=== PATIENT | male | born 1975 | race Caucasian/White ===

== ENCOUNTER 2016-11-22 19:56 | Emergency (ER) | payer MEDICAID ==
[~2016-11-22] VITALS: Ht 160 cm; Wt 52.6 kg
[2016-11-22 20:06] VITALS: BP 144/67; PULSE 75; RESP 18; TEMP 97.9; O2SAT 99
--- NOTE | 2016-11-22 20:11 | NUR ---
PT TRIAGED. VITAL SIGNS ARE STABLE. PT AMBULATED TO WAITING ROOM W/ A STEADY GAIT
--- NOTE | 2016-11-22 20:45 | NUR ---
Brenda Wilson, PROMOTIONAL MODEL in triage to examine pt and discuss plan of care.
--- NOTE | 2016-11-22 21:30 | NUR ---
Pt ambulatory to c1. Report given to ABRAN Brantley.
--- NOTE | 2016-11-22 21:40 | NUR ---
Pt states that he has been having 10/10 headache with photophobia. Will continue to monitor. AAOx4. No distress noted.
[2016-11-22] MEDS ORDERED: KETOROLAC TROMETHAMINE 60 MG/2 ML VIAL IM ONE (22:15)
[2016-11-22 23:19] VITALS: BP 138/67; PULSE 72; RESP 18; TEMP 97.9; O2SAT 99
--- NOTE | 2016-11-22 23:19 | NUR ---
Patient given written and verbal discharge instructions and verbalizes understanding. ER MD discussed with patient the results and treatment provided. Patient in stable condition. ID arm band removed. Rx of Moltrin given. Patient educated on pain management and to follow up with PMD. Pain Scale 2/10. Opportunity for questions provided and answered.
== END 2016-11-22 23:19 | disposition home or self-care (01) ==
LOC: SED 19:56
DX: G43.909 Migraine, unspecified, not intractable, without status migrainosus (principal); F41.9 Anxiety disorder, unspecified; F12.90 Cannabis use, unspecified, uncomplicated
CPT/HCPCS: 36415; 70450; 84484; 93005; 96372; 99285; J1885